=== PATIENT | male | born 2000 | race Caucasian/White ===

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

== ENCOUNTER 2020-10-08 15:18 | Emergency (ER) | payer OTHER ==
[2020-10-08 15:32] VITALS: BP 146/74; PULSE 68; BMI 20.5
[2020-10-08] MEDS ORDERED: AZITHROMYCIN 500 MG TABLET PO ONE (16:38)
[2020-10-08] MEDS ORDERED: AZITHROMYCIN 250 MG TABLET ONE (16:44)
[2020-10-08] MEDS ORDERED: LIDOCAINE HCL 1%, 10 MG/ML (20ML VIAL) ONE (16:45)
[2020-10-08 17:33] LABS: PH,URINE 5.5 (5.0-8.0); URINE APPEARANCE CLEAR; URINE BILIRUBIN NEGATIVE (NEGATIVE); URINE COLOR YELLOW; URINE GLUCOSE (UA) NEGATIVE (NEGATIVE); URINE KETONE 1+ (NEGATIVE); URINE LEUK ESTERASE NEGATIVE (NEGATIVE); URINE NITRITE NEGATIVE (NEGATIVE); URINE PROTEIN NEGATIVE (NEGATIVE)
== END 2020-10-08 17:12 | disposition home or self-care (01) ==
LOC: JERFT 15:18
DX: N48.1 Balanitis (principal); Z11.3 Encounter for screening for infections with a predominantly sexual mode of transmission
CPT/HCPCS: 36415; 81003; 86780; 87086; 87389; 87491; 87591; 99284-25

== ENCOUNTER 2021-08-12 10:23 | Emergency (ER) | payer OTHER ==
[2021-08-12 10:39] VITALS: BP 130/84; PULSE 63; TEMP 98; BMI 22.5
[2021-08-12] MEDS ORDERED: KETOROLAC TROMETHAMINE 30 MG/1 ML VIAL IM ONE (11:35)
[2021-08-12] MEDS ORDERED: METHOCARBAMOL 500 MG TABLET PO ONE (11:35)
[2021-08-12] MEDS ORDERED: KETOROLAC TROMETHAMINE 30 MG/1 ML VIAL ONE (11:37)
[2021-08-12] MEDS ORDERED: METHOCARBAMOL 500 MG TABLET ONE (11:37)
== END 2021-08-12 12:02 | disposition home or self-care (01) ==
LOC: JERFT 10:23
PROC: 3E0233Z Introduction of Anti-inflammatory into Muscle, Percutaneous Approach (ICD-10-PCS; principal; 2021-08-12)
DX: M62.830 Muscle spasm of back (principal)
CPT/HCPCS: 99284-25

== ENCOUNTER 2021-08-16 09:40 | Emergency (ER) | payer OTHER ==
[2021-08-16 09:47] VITALS: BP 133/85; PULSE 95; TEMP 98; BMI 22.8
[2021-08-16] MEDS ORDERED: ONDANSETRON 4 MG/2 ML VIAL IVPUSH ONE (11:13)
[2021-08-16] MEDS ORDERED: SODIUM CHLORIDE 0.9% 500 ML INFUS.BAG IV ONE (11:13)
[2021-08-16] MEDS ORDERED: ONDANSETRON 4 MG/2 ML VIAL ONE (11:31)
[2021-08-16 12:15] LABS: BASO % 0.8 % (0-2.0); EOS % 0.5 % (0-4.5); HEMATOCRIT 43.3 % (35.4-49); HEMOGLOBIN 14.6 GM/dL (11.7-16.9); LYMPH % 11.9 % (8-40); MCH 28.5 pg (25.7-33.7); MCHC 33.7 g/dl (32.0-35.9); MEAN CELL VOLUME 84.6 fl (80-96); MEAN PLT VOLUME 8.9 fl (7.5-11.1); MONO % 8.4 % (3.8-10.2); NEUT % 78.4 % (42.8-82.8); PLATELET COUNT 223 10^3/uL (134-434); RBC 5.11 M/mm3 (4.00-5.60); RDW 14.3 % (11.9-15.9); WHITE BLOOD COUNT 6.2 K/mm3 (4.0-10.0)
[2021-08-16 12:23] LABS: EPI CELLS 4 /uL (0-25.1); HYALINE CASTS 1 /uL (0-3.1); URINE APPEARANCE CLEAR; URINE BACTERIA 12 /uL (0-1359); URINE BILIRUBIN NEGATIVE (NEGATIVE); URINE COLOR YELLOW; URINE GLUCOSE (UA) NEGATIVE (NEGATIVE); URINE KETONE NEGATIVE (NEGATIVE); URINE LEUK ESTERASE NEGATIVE (NEGATIVE); URINE NITRITE NEGATIVE (NEGATIVE); URINE PROTEIN 1+ (NEGATIVE); URINE RBC 1 /uL (0-23.9); URINE UROBILINOGEN 0.2 mg/dL (0.2-1.0); URINE WBC 5 /uL (0-25.8)
[2021-08-16 12:33] LABS: ALBUMIN 4.3 g/dl (3.4-5.0); CALCIUM 9.2 mg/dL (8.5-10.1)
[2021-08-16 12:34] LABS: BLOOD UREA NITROGEN 14.4 mg/dL (7-18)
[2021-08-16 12:37] LABS: CREATININE 1.4 mg/dL (0.55-1.3)
[2021-08-16 12:38] LABS: TOT PROT 7.6 g/dl (6.4-8.2)
== END 2021-08-16 13:41 | disposition home or self-care (01) ==
LOC: JER 09:40
PROC: 3E033GC Introduction of Other Therapeutic Substance into Peripheral Vein, Percutaneous Approach (ICD-10-PCS; principal; 2021-08-16)
DX: R11.2 Nausea with vomiting, unspecified (principal)
CPT/HCPCS: 36415; 80053; 81003; 83690; 85025; 87086; 99284-25

== ENCOUNTER 2021-08-17 06:51 | Emergency (ER) | payer OTHER ==
[2021-08-17 07:25] VITALS: PULSE 50; BMI 22.8
[2021-08-17] MEDS ORDERED: ONDANSETRON 4 MG/2 ML VIAL IVPUSH ONE (07:50)
[2021-08-17] MEDS ORDERED: SODIUM CHLORIDE 1,000 ML IV STA ×3 (07:50→13:21)
[2021-08-17] MEDS ORDERED: ACETAMINOPHEN 1000 MG/100 ML VIAL IVPB ONE (07:51)
[2021-08-17] MEDS ORDERED: FAMOTIDINE 20 MG/50 ML IVPB 20 MG/50 ML MG IVPB ONE ×2 (07:51→08:04)
[2021-08-17] MEDS ORDERED: ACETAMINOPHEN INJECTION 100 ML IVPB ONE (08:03)
[2021-08-17] MEDS ORDERED: ONDANSETRON 4 MG/2 ML VIAL ONE (08:03)
[2021-08-17 08:36] LABS: BASO % 0.6 % (0-2.0); EOS % 0.3 % (0-4.5); HEMATOCRIT 43.9 % (35.4-49); HEMOGLOBIN 14.9 GM/dL (11.7-16.9); MCH 28.8 pg (25.7-33.7); MCHC 33.9 g/dl (32.0-35.9); MEAN PLT VOLUME 8.9 fl (7.5-11.1); MONO % 5.3 % (3.8-10.2); NEUT % 83.8 % (42.8-82.8); PLATELET COUNT 211 10^3/uL (134-434); RBC 5.16 M/mm3 (4.00-5.60); RDW 14.4 % (11.9-15.9); WHITE BLOOD COUNT 6.6 K/mm3 (4.0-10.0)
[2021-08-17 08:50] LABS: CALCIUM 9.2 mg/dL (8.5-10.1)
[2021-08-17 08:52] LABS: ALBUMIN 3.8 g/dl (3.4-5.0); BLOOD UREA NITROGEN 14.7 mg/dL (7-18); MAGNESIUM 2.4 mg/dL (1.8-2.4)
[2021-08-17 08:55] LABS: BILIRUBIN,TOTAL 0.9 mg/dL (0.2-1); CREATININE 1.7 mg/dL (0.55-1.3); TOT PROT 7.6 g/dl (6.4-8.2)
[2021-08-17 10:14] LABS: PH,URINE 6.5 (5.0-8.0); URINE APPEARANCE CLEAR; URINE BILIRUBIN NEGATIVE (NEGATIVE); URINE COLOR YELLOW; URINE GLUCOSE (UA) NEGATIVE (NEGATIVE); URINE KETONE TRACE (NEGATIVE); URINE LEUK ESTERASE NEGATIVE (NEGATIVE); URINE NITRITE NEGATIVE (NEGATIVE); URINE PROTEIN TRACE (NEGATIVE); URINE UROBILINOGEN 0.2 mg/dL (0.2-1.0)
[2021-08-17 12:57] VITALS: BP 133/72; TEMP 98.9
[2021-08-17] MEDS ORDERED: CEFTRIAXONE 1,000 MG in DEXTROSE 5%-WATER - 50 ML IVPB ONE (13:20)
[2021-08-17] MEDS ORDERED: CEFTRIAXONE 1 GM/50 ML BAG ONE (13:31)
== END 2021-08-17 15:53 | disposition left against medical advice (07) ==
LOC: JER 06:51
PROC: 3E033GC Introduction of Other Therapeutic Substance into Peripheral Vein, Percutaneous Approach (ICD-10-PCS; principal; 2021-08-17)
DX: K36 Other appendicitis (principal); N17.9 Acute kidney failure, unspecified; R11.2 Nausea with vomiting, unspecified
CPT/HCPCS: 36415; 74176-TC; 80053; 81003; 83690; 83735; 85025; 93005; 93010; 99285-25; C9803; J0131; U0003; U0005

== ENCOUNTER 2022-06-13 16:29 | Emergency (ER) | payer OTHER ==
[2022-06-13 17:01] VITALS: BP 112/70; PULSE 68; RESP 18; TEMP 98.1; BMI 22.0
[2022-06-13] MEDS ORDERED: ACETAMINOPHEN 325 MG TABLET (FP) PO ONE (17:47)
[2022-06-13] MEDS ORDERED: ACETAMINOPHEN 325 MG TABLET (FP) ONE (18:02)
== END 2022-06-13 18:35 | disposition left against medical advice (07) ==
LOC: JER 16:29
DX: R10.9 Unspecified abdominal pain (principal)
CPT/HCPCS: 99283-25

== ENCOUNTER 2023-10-29 15:47 | Emergency (ER) | payer OTHER ==
[2023-10-29 15:51] VITALS: BP 121/77; PULSE 72; RESP 18; TEMP 98; BMI 20.8
[2023-10-29] MEDS ORDERED: KETOROLAC TROMETHAMINE 30 MG/1 ML VIAL ONE (17:49)
[2023-10-29] MEDS ORDERED: LIDOCAINE 4% PATCH TP ONE (17:49)
[2023-10-29] MEDS ORDERED: CYCLOBENZAPRINE HCL 10 MG TABLET (FP) ONE (17:49)
[2023-10-29] MEDS: CYCLOBENZAPRINE HCL 10 MG TABLET (FP) PO ONE (17:55)
[2023-10-29] MEDS: LIDOCAINE 4% PATCH TP ONE (17:55)
[2023-10-29] MEDS: KETOROLAC TROMETHAMINE 30 MG/1 ML VIAL IM ONE (17:55)
[2023-10-29] MEDS ORDERED: LIDOCAINE PATCH REMOVAL MC ONE (22:00)
== END 2023-10-29 18:33 | disposition home or self-care (01) ==
LOC: JERFT 15:47
PROC: 3E0233Z Introduction of Anti-inflammatory into Muscle, Percutaneous Approach (ICD-10-PCS; principal; 2023-10-29)
DX: M54.6 Pain in thoracic spine (principal); S46.911A Strain of unspecified muscle, fascia and tendon at shoulder and upper arm level, right arm, initial encounter; M25.511 Pain in right shoulder; X50.0XXA Overexertion from strenuous movement or load, initial encounter
CPT/HCPCS: 99284-25

== ENCOUNTER 2023-11-12 22:40 | Emergency (ER) | payer OTHER ==
[2023-11-12 22:52] VITALS: BP 126/80; PULSE 91; RESP 18; TEMP 98.5; BMI 23.2
== END 2023-11-13 01:24 | disposition left against medical advice (07) ==
LOC: JER 22:40
DX: H91.91 Unspecified hearing loss, right ear (principal)
CPT/HCPCS: 99281-25

== ENCOUNTER 2024-04-29 17:11 | Emergency (ER) | payer OTHER ==
[2024-04-29 17:23] VITALS: BP 129/76; PULSE 73; RESP 18; TEMP 99; BMI 22.5
[2024-04-29] MEDS ORDERED: CEPHALEXIN MONOHYDRATE 500 MG CAPSULE (UD) ONE (17:45)
[2024-04-29] MEDS ORDERED: FAMOTIDINE 20 MG TABLET ONE (17:46)
[2024-04-29] MEDS ORDERED: DEXAMETHASONE SOD PHOSPHATE 10 MG/1 ML VIAL ONE (17:46)
[2024-04-29] MEDS: DEXAMETHASONE SOD PHOSPHATE 10 MG/1 ML VIAL IM ONE (17:56)
[2024-04-29] MEDS: CEPHALEXIN MONOHYDRATE 500 MG CAPSULE (UD) PO ONE (17:56)
[2024-04-29] MEDS: FAMOTIDINE 20 MG TABLET PO ONE (17:56)
[2024-04-29 19:23] LABS: HIV INTERPRETATION NEGATIVE (NEGATIVE)
== END 2024-04-29 18:22 | disposition home or self-care (01) ==
LOC: JER 17:11
PROC: 3E023GC Introduction of Other Therapeutic Substance into Muscle, Percutaneous Approach (ICD-10-PCS; principal; 2024-04-29)
DX: S40.861A Insect bite (nonvenomous) of right upper arm, initial encounter (principal); W57.XXXA Bitten or stung by nonvenomous insect and other nonvenomous arthropods, initial encounter
CPT/HCPCS: 36415; 86803; 87389; 99284-25; J1100